=== PATIENT | female | born 1990 | race Caucasian/White ===

== ENCOUNTER 2021-11-19 10:22 | Inpatient (IN) | payer MEDICAID ==
[~2021-11-19] VITALS: Ht 152.4 cm; Wt 43.5 kg
[2021-11-19] MEDS ORDERED: LORazepam 2 MG/ML VIAL IM ONE (10:45)
[2021-11-19] MEDS ORDERED: DiphenhydrAMINE HCL 50 MG/ML VIAL IM ONE (10:45)
[2021-11-19] MEDS ORDERED: HALOPERIDOL LACTATE 5 MG/ML VIAL IM ONE (10:45)
[2021-11-19 12:50] LABS: BASOPHILS % (AUTO) 0.7 % (0.0-2.0); EOSINOPHILS % (AUTO) 1.3 % (1.0-6.0); HEMATOCRIT 43.9 % (36-46); HEMOGLOBIN 14.6 g/dL (12.0-16.0); LYMPHOCYTES # (AUTO) 1.9 K/uL (1.0-4.8); MEAN CORPUSCULAR HEMOGLOBIN 32.7 pg (26.0-34.0); MEAN CORPUSCULAR HGB CONC 33.2 G/dL (31.0-37.0); MEAN CORPUSCULAR VOLUME 99 fL (80-100); MONOCYTES # (AUTO) 0.3 K/uL (0.1-1.0); MONOCYTES % (AUTO) 5.4 % (2.0-9.0); NEUTROPHILS # (AUTO) 3.4 K/uL (1.8-7.7); NEUTROPHILS % (AUTO) 59.6 % (40.0-70.0); PLATELET COUNT (AUTO) 379 K/uL (150-450); RED BLOOD CELL COUNT(AUTO) 4.45 MIL/uL (4.00-5.20)
[2021-11-19 13:02] LABS: ANION GAP 13 mmol/L (8-16); CALCIUM, TOTAL 9.3 mg/dL (8.8-10.5); CARBON DIOXIDE 24 mmol/L (22-29); CHLORIDE 105 mmol/L (98-107); CREATININE 0.62 mg/dL (0.60-1.30); GLOMERULAR FILTR. RATE CALC > 60 mL/min (>60); GLUCOSE,RANDOM 65 mg/dL (70-110); POTASSIUM 3.9 mmol/L (3.5-5.1); SODIUM SERUM 142 mmol/L (136-145); UREA NITROGEN, BLOOD 6 mg/dL (7-18)
[2021-11-19 13:04] LABS: COVID AG,FIA SOURCE NASOPHARYNGEAL
[2021-11-19 13:08] LABS: ALANINE AMINOTRANSFERASE 24 U/L (12-78); ALBUMIN 3.4 g/dL (3.4-5.0); ALKALINE PHOSPHATASE 88 U/L (46-116); ASPARTATE AMINOTRANSFERASE 20 U/L (15-37); BILIRUBIN,TOTAL 0.7 mg/dL (0.1-1.0); TOTAL PROTEIN, SERUM 7.1 g/dL (6.4-8.2)
[2021-11-19 21:02] VITALS: BP 97/64
[2021-11-20 00:28] VITALS: BP 100/68
[2021-11-20 08:05] VITALS: BP 112/68
[2021-11-20] MEDS: HALOPERIDOL 5 MG TABLET PO PRN (13:56)
[2021-11-20] MEDS: LORazepam 2 MG TABLET PO PRN (13:56)
[2021-11-20 16:08] VITALS: BP 100/61
[2021-11-20] MEDS ORDERED: BENZOCAINE/MENTHOL LOZENGE PO PRN (20:15)
[2021-11-20] MEDS ORDERED: ALBUTEROL SULFATE HFA 90 MCG/PUFF 8 GM INHALER IH PRN (20:15)
[2021-11-20] MEDS ORDERED: ACETAMINOPHEN 325 MG TABLET PO PRN (20:15)
[2021-11-20] MEDS ORDERED: OMEPRAZOLE 20 MG CAPSULE PO PRN (20:15)
[2021-11-20] MEDS ORDERED: MAGNESIUM HYDROXIDE SUSPENSION 30 ML UDCUP PO PRN (20:15)
[2021-11-20] MEDS ORDERED: LOPERAMIDE HCL 2 MG CAPSULE PO PRN (20:15)
[2021-11-20] MEDS ORDERED: MAG HYDROX/AL HYDROX/SIMETH ES 30 ML SUSPENSION UDCUP PO PRN (20:15)
[2021-11-20] MEDS ORDERED: IBUPROFEN 600 MG TABLET PO PRN (20:15)
[2021-11-20] MEDS ORDERED: BACITRACIN 28 GM OINTMENT TP PRN (20:15)
[2021-11-20] MEDS ORDERED: PETROLATUM,WHITE 28 GM JELLY TP PRN (20:15)
[2021-11-20] MEDS ORDERED: CloNIDine HCL 0.1 MG TABLET PO PRN (20:15)
[2021-11-20] MEDS ORDERED: DOCUSATE SODIUM 100 MG CAPSULE PO PRN (20:15)
[2021-11-20] MEDS ORDERED: ONDANSETRON HCL 4 MG TABLET PO PRN (20:15)
[2021-11-21 00:03] VITALS: BP 102/64
[2021-11-21] MEDS: LORazepam 2 MG TABLET PO PRN (16:03)
[2021-11-21] MEDS: HALOPERIDOL 5 MG TABLET PO PRN (16:03)
[2021-11-22] MEDS: LORazepam 2 MG TABLET PO PRN (12:52)
[2021-11-22 16:37] VITALS: BP 100/66
[2021-11-23 00:12] VITALS: BP 108/64
[2021-11-23] MEDS: HALOPERIDOL 5 MG TABLET PO PRN (07:00)
[2021-11-23] MEDS: LORazepam 2 MG TABLET PO PRN ×2 (07:00→14:49)
[2021-11-23 08:06] VITALS: BP 113/74
[2021-11-23 16:08] VITALS: BP 110/66
[2021-11-24 00:30] VITALS: BP 108/64
[2021-11-24 08:16] VITALS: BP 117/69
[2021-11-24] MEDS: LORazepam 2 MG TABLET PO PRN ×2 (08:18→17:37)
[2021-11-24] MEDS: QUEtiapine FUMARATE 100 MG TABLET PO SCH ×3 (08:22→16:15)
[2021-11-25 01:30] VITALS: BP 112/67
[2021-11-25] MEDS: QUEtiapine FUMARATE 100 MG TABLET PO SCH ×3 (08:05→16:27)
[2021-11-25] MEDS: LORazepam 2 MG TABLET PO PRN ×2 (08:05→16:28)
[2021-11-25 08:30] VITALS: BP 106/69
[2021-11-25] MEDS: HALOPERIDOL 5 MG TABLET PO PRN (12:39)
[2021-11-25 16:08] VITALS: BP 111/71
[2021-11-26] MEDS: QUEtiapine FUMARATE 100 MG TABLET PO SCH ×3 (08:25→16:11)
[2021-11-26] MEDS: HALOPERIDOL 5 MG TABLET PO PRN (08:26)
[2021-11-26] MEDS: LORazepam 2 MG TABLET PO PRN (08:26)
[2021-11-26 18:31] LABS: GLUCOMETER DEV NAME(LOC) POC.BV
[2021-11-26 22:02] VITALS: BP 110/65
[2021-11-27] MEDS: LORazepam 2 MG TABLET PO PRN ×2 (08:46→18:20)
[2021-11-27] MEDS: QUEtiapine FUMARATE 100 MG TABLET PO SCH ×3 (08:46→16:33)
[2021-11-27 16:23] VITALS: BP 100/61
[2021-11-27 18:19] VITALS: BP 113/60
[2021-11-27] MEDS ORDERED: QUET100T34 PO (23:29)
[2021-11-28 01:16] VITALS: BP 106/106
[2021-11-28] MEDS: LORazepam 2 MG TABLET PO PRN (07:11)
[2021-11-28 08:08] VITALS: BP 113/68
[2021-11-28] MEDS: QUEtiapine FUMARATE 100 MG TABLET PO SCH ×2 (08:09→12:02)
== END 2021-11-28 14:52 | disposition home or self-care (01) | DRG 750 ==
LOC: EDBD 10:26 → EMS 10:26 → B3A 15:39
PROVIDERS: ADMIT Psychiatry & Neurology Psychiatry; ATTEND Psychiatry & Neurology Psychiatry
DX: F25.9 Schizoaffective disorder, unspecified (principal); F10.10 Alcohol abuse, uncomplicated; F32.A Depression, unspecified; G47.00 Insomnia, unspecified; K21.9 Gastro-esophageal reflux disease without esophagitis; F15.10 Other stimulant abuse, uncomplicated; F17.210 Nicotine dependence, cigarettes, uncomplicated; Z20.822 Contact with and (suspected) exposure to COVID-19; Z79.899 Other long term (current) drug therapy; Z88.5 Allergy status to narcotic agent
CPT/HCPCS: 80053; 84703; 85025; 99291; G0480; J1200; J1630; J2060; Q0162

== ENCOUNTER 2022-01-02 11:49 | Inpatient (IN) | payer MEDICAID, OTHER ==
[~2022-01-02] VITALS: Ht 154.9 cm; Wt 46.3 kg
[~2022-01-02 11:49] MED LIST: DIVA-112 PO; QUET100T34 PO; RISP1TAB98 PO
[2022-01-02] MEDS ORDERED: HALOPERIDOL LACTATE 5 MG/ML VIAL IM ONE (12:00)
[2022-01-02] MEDS ORDERED: DiphenhydrAMINE HCL 50 MG/ML VIAL IM ONE (12:00)
[2022-01-02] MEDS ORDERED: MIDAZOLAM HCL 2 MG/2 ML VIAL IM ONE (13:30)
[2022-01-02] MEDS ORDERED: ZOLPIDEM TARTRATE 10 MG TABLET PO PRN (13:45)
[2022-01-02 14:21] LABS: GLUCOSE,POINT OF CARE 88 MG/DL (70-110)
[2022-01-02 15:12] LABS: BASOPHILS % (AUTO) 0.5 % (0.0-2.0); EOSINOPHILS % (AUTO) 0.5 % (1.0-6.0); HEMATOCRIT 41.8 % (36-46); HEMOGLOBIN 14.4 g/dL (12.0-16.0); LYMPHOCYTES # (AUTO) 1.7 K/uL (1.0-4.8); LYMPHOCYTES % (AUTO) 18.3 % (22.0-44.0); MEAN CORPUSCULAR HEMOGLOBIN 33.3 pg (26.0-34.0); MEAN CORPUSCULAR HGB CONC 34.4 G/dL (31.0-37.0); MEAN CORPUSCULAR VOLUME 97 fL (80-100); MONOCYTES # (AUTO) 0.6 K/uL (0.1-1.0); NEUTROPHILS # (AUTO) 7.1 K/uL (1.8-7.7); NEUTROPHILS % (AUTO) 74.7 % (40.0-70.0); PLATELET COUNT (AUTO) 333 K/uL (150-450); RED BLOOD CELL COUNT(AUTO) 4.31 MIL/uL (4.00-5.20); RED CELL DISTRIBUTION WIDTH 14.4 % (11.5-14.5)
[2022-01-02 15:20] LABS: ANION GAP 10 mmol/L (8-16); CALCIUM, TOTAL 9.1 mg/dL (8.8-10.5); CARBON DIOXIDE 27 mmol/L (22-29); CHLORIDE 100 mmol/L (98-107); GLUCOSE,RANDOM 86 mg/dL (70-110); POTASSIUM 3.5 mmol/L (3.5-5.1); SODIUM SERUM 137 mmol/L (136-145); UREA NITROGEN, BLOOD 13 mg/dL (7-18)
[2022-01-02 15:22] LABS: GLOMERULAR FILTR. RATE CALC > 60 mL/min (>60)
[2022-01-02 15:40] LABS: ALANINE AMINOTRANSFERASE 45 U/L (12-78); ALBUMIN 3.9 g/dL (3.4-5.0); ALKALINE PHOSPHATASE 101 U/L (46-116); ASPARTATE AMINOTRANSFERASE 78 U/L (15-37); BILIRUBIN,TOTAL 2.8 mg/dL (0.1-1.0); HCG,QUANTITATIVE < 1 mIU/mL (0-6); TOTAL PROTEIN, SERUM 7.7 g/dL (6.4-8.2)
[2022-01-02 15:56] LABS: VALPROIC ACID < 3 mcg/mL (50-100)
[2022-01-02 16:17] LABS: COVID AG,FIA SOURCE NASOPHARYNGEAL
[2022-01-02 18:00] VITALS: BP 110/69
[2022-01-03] MEDS ORDERED: LOPERAMIDE HCL 2 MG CAPSULE PO PRN (06:45)
[2022-01-03] MEDS ORDERED: PETROLATUM,WHITE 28 GM JELLY TP PRN (06:45)
[2022-01-03] MEDS ORDERED: MAG HYDROX/AL HYDROX/SIMETH ES 30 ML SUSPENSION UDCUP PO PRN (06:45)
[2022-01-03] MEDS ORDERED: CloNIDine HCL 0.1 MG TABLET PO PRN (06:45)
[2022-01-03] MEDS ORDERED: MAGNESIUM HYDROXIDE SUSPENSION 30 ML UDCUP PO PRN (06:45)
[2022-01-03] MEDS ORDERED: ALBUTEROL SULFATE HFA 90 MCG/PUFF 8 GM INHALER IH PRN (06:45)
[2022-01-03] MEDS ORDERED: IBUPROFEN 400 MG TABLET PO PRN (06:45)
[2022-01-03] MEDS ORDERED: GuaiFENesin/D-METHORPHAN [SUGAR-FREE] 200-20MG/10 ML SYRUP UDCUP PO PRN (06:45)
[2022-01-03] MEDS ORDERED: ONDANSETRON HCL 4 MG TABLET PO PRN (06:45)
[2022-01-03] MEDS ORDERED: ACETAMINOPHEN 325 MG TABLET PO PRN (06:45)
[2022-01-03] MEDS ORDERED: DOCUSATE SODIUM 100 MG CAPSULE PO PRN (06:45)
[2022-01-03] MEDS ORDERED: RisperiDONE 1 MG TABLET PO SCH (09:30)
[2022-01-03] MEDS: LORazepam 2 MG TABLET PO PRN (10:11)
[2022-01-03] MEDS: OLANZapine 5 MG TABLET PO SCH ×2 (12:21→20:57)
[2022-01-03 20:30] VITALS: BP 109/60
[2022-01-04 08:00] VITALS: BP 109/64
[2022-01-04] MEDS: OLANZapine 5 MG TABLET PO SCH (08:16)
[2022-01-04] MEDS: HALOPERIDOL 5 MG TABLET PO PRN (10:33)
[2022-01-04 20:22] VITALS: BP 113/70
[2022-01-05] MEDS: OLANZapine 5 MG TABLET PO SCH ×2 (08:22→20:44)
[2022-01-05 08:35] VITALS: BP 102/66
[2022-01-05] MEDS: HALOPERIDOL 5 MG TABLET PO PRN (09:12)
[2022-01-05 20:25] VITALS: BP 111/69
[2022-01-06] MEDS: HALOPERIDOL 5 MG TABLET PO PRN (07:59)
[2022-01-06] MEDS: OLANZapine 5 MG TABLET PO SCH ×2 (08:00→20:29)
[2022-01-07] MEDS: OLANZapine 5 MG TABLET PO SCH ×2 (08:13→21:31)
[2022-01-07] MEDS: HALOPERIDOL 5 MG TABLET PO PRN ×2 (08:13→14:20)
[2022-01-07] MEDS: NICOTINE 14 MG/24 HOUR PATCH TD PRN (14:20)
[2022-01-07] MEDS: LORazepam 2 MG TABLET PO PRN (16:33)
[2022-01-08] MEDS: OLANZapine 5 MG TABLET PO SCH ×2 (08:23→21:56)
[2022-01-08 08:45] VITALS: BP 114/66
[2022-01-08] MEDS: LORazepam 2 MG TABLET PO PRN (15:06)
[2022-01-08] MEDS: HALOPERIDOL 5 MG TABLET PO PRN (15:06)
[2022-01-09] MEDS: OLANZapine 5 MG TABLET PO SCH ×2 (09:09→20:58)
[2022-01-09] MEDS: HALOPERIDOL 5 MG TABLET PO PRN ×2 (09:33→17:03)
[2022-01-09 16:21] VITALS: BP 105/71
[2022-01-09 20:30] VITALS: BP 110/68
[2022-01-10 08:39] VITALS: BP 119/74
[2022-01-10] MEDS: OLANZapine 5 MG TABLET PO SCH ×2 (09:13→20:04)
[2022-01-10] MEDS: LORazepam 2 MG TABLET PO PRN ×2 (09:19→20:04)
[2022-01-10 10:31] LABS: GLUCOMETER DEV NAME(LOC) POC.BV
[2022-01-10] MEDS: HALOPERIDOL 5 MG TABLET PO PRN (17:00)
[2022-01-10 21:18] VITALS: BP 109/64
[2022-01-11] MEDS: OLANZapine 5 MG TABLET PO SCH ×2 (08:05→20:16)
[2022-01-11] MEDS: HALOPERIDOL 5 MG TABLET PO PRN ×2 (12:28→17:30)
[2022-01-11] MEDS: LORazepam 2 MG TABLET PO PRN ×2 (12:28→17:30)
[2022-01-11] MEDS: NICOTINE 14 MG/24 HOUR PATCH TD PRN (15:22)
[2022-01-11 16:08] VITALS: BP 109/71
[2022-01-11 21:57] VITALS: BP 109/71
[2022-01-12 08:09] VITALS: BP 116/73
[2022-01-12] MEDS: OLANZapine 5 MG TABLET PO SCH ×2 (08:18→20:50)
[2022-01-12] MEDS: LORazepam 2 MG TABLET PO PRN ×2 (12:53→17:00)
[2022-01-12] MEDS: HALOPERIDOL 5 MG TABLET PO PRN ×2 (13:29→19:56)
[2022-01-12 17:00] VITALS: BP 114/65
[2022-01-12 20:15] VITALS: BP 106/67
[2022-01-13 04:20] VITALS: BP 10/74
[2022-01-13 08:15] VITALS: BP 109/66
[2022-01-13] MEDS: OLANZapine 5 MG TABLET PO SCH ×2 (08:37→20:06)
[2022-01-13] MEDS: LORazepam 2 MG TABLET PO PRN (08:40)
[2022-01-13] MEDS: HALOPERIDOL 5 MG TABLET PO PRN (12:31)
[2022-01-13 20:31] VITALS: BP 101/70
[2022-01-14 08:09] VITALS: BP 108/69
[2022-01-14] MEDS: OLANZapine 5 MG TABLET PO SCH ×2 (08:17→20:03)
[2022-01-14] MEDS: LORazepam 2 MG TABLET PO PRN ×2 (08:57→16:09)
[2022-01-14] MEDS: HALOPERIDOL 5 MG TABLET PO PRN ×2 (09:50→16:09)
[2022-01-15 04:13] VITALS: BP 116/72
[2022-01-15 08:00] VITALS: BP 104/68
[2022-01-15] MEDS: OLANZapine 5 MG TABLET PO SCH ×2 (08:10→20:08)
[2022-01-15] MEDS: LORazepam 2 MG TABLET PO PRN ×2 (08:10→17:24)
[2022-01-15] MEDS: HALOPERIDOL 5 MG TABLET PO PRN ×2 (08:49→18:35)
[2022-01-15 17:24] VITALS: BP 125/69
[2022-01-15] MEDS: NICOTINE 14 MG/24 HOUR PATCH TD PRN (19:00)
[2022-01-15 20:40] VITALS: BP 122/85
[2022-01-16] MEDS: OLANZapine 5 MG TABLET PO SCH (08:34)
[2022-01-16] MEDS: LORazepam 2 MG TABLET PO PRN (08:59)
[2022-01-16] MEDS ORDERED: OLAN5TAB52 PO (10:38)
== END 2022-01-16 14:34 | disposition home or self-care (01) | DRG 750 ==
LOC: EMS 11:51 → B3A 16:01
PROVIDERS: ADMIT Psychiatry & Neurology Psychiatry; ATTEND Psychiatry & Neurology Psychiatry
DX: F20.0 Paranoid schizophrenia (principal); R17 Unspecified jaundice; F10.10 Alcohol abuse, uncomplicated; Z59.00 Homelessness unspecified; Z71.41 Alcohol abuse counseling and surveillance of alcoholic; R74.01 Elevation of levels of liver transaminase levels; F19.10 Other psychoactive substance abuse, uncomplicated; Z71.51 Drug abuse counseling and surveillance of drug abuser; B17.9 Acute viral hepatitis, unspecified; Z20.822 Contact with and (suspected) exposure to COVID-19
CPT/HCPCS: 80053; 80164; 82962; 84702; 85025; 99291; G0480; J1200; J1630